=== PATIENT | female | born 1985 | race Caucasian/White ===

== ENCOUNTER 2017-04-16 01:02 | Emergency (ER) | END 2017-04-16 02:50 | disposition home or self-care (01) ==

== ENCOUNTER → 2019-08-29 | Outpatient (CLI) | payer BC, OTHER ==
[~2019-08-29] MED LIST: ALBU90OI INH; DIPH50 PO; IBUP800 PO; LEVSOD50 PO; Prednisone20 MG PO; SPACER INH; Verotin-Gr Cap1 EACH PO
[2019-08-29 18:40] LABS: Protein, Urine Quantitative 23.3 mg/dL (0.0-11.9)
== END | disposition home or self-care (01) ==
LOC: LAB 08:00 → LAB SHORT 08:00
PROVIDERS: Obstetrics & Gynecology
DX: Z09 Encounter for follow-up examination after completed treatment for conditions other than malignant neoplasm (principal); Z87.59 Personal history of other complications of pregnancy, childbirth and the puerperium
CPT/HCPCS: 81050; 84156